=== PATIENT | male | born 1965 | race Caucasian/White ===

== ENCOUNTER 2017-01-20 12:09 | Emergency (ER) | payer OTHER ==
[~2017-01-20] VITALS: Ht 170.2 cm; Wt 81.6 kg
[2017-01-20 13:09] VITALS: BP 151/92
== END 2017-01-20 13:26 | disposition home or self-care (01) ==
LOC: ED 12:09
DX: Z00.00 Encounter for general adult medical examination without abnormal findings (principal); Z86.73 Personal history of transient ischemic attack (TIA), and cerebral infarction without residual deficits